=== PATIENT | male | born 1990 | race African-American/Black ===

== ENCOUNTER 2022-10-21 08:00 | Observation (INO) ==
[2022-10-21] MEDS ORDERED: ASPIRIN 325 MG TABLET PO STA (08:16)
[2022-10-21] MEDS ORDERED: NITROGLYCERIN SL 0.4 MG TABLET SL STA (08:21)
[2022-10-21 08:36] LABS: Basophils # 0.1 10*3/uL (0.0-0.2); Basophils % 0.4 % (0.0-0.8); Eosinophils % 0.1 % (0.00-10.9); Hematocrit 47.3 VOL% (42.0-52.0); Hemoglobin 16.1 GM/DL (14.0-18.0); Immature Granulocytes Absolute 0.67 #; Lymphocytes # 2.5 10*3/uL (1.4-4.0); Lymphocytes % 7.4 % (21.2-54.2); Mean Corpuscular Volume 89.1 FL (87-102); Mean Platelet Volume 9.3 FL (9.6-12.0); Monocytes # 3.5 10*3/uL (0.11-0.8); Monocytes % 10.4 % (1.7-12.7); Neutrophils % 79.7 % (38.7-73.9); Platelet Count 258 T/CUMM (130-400); Red Blood Count 5.31 MC/CUMM (3.8-5.5); Red Cell Distribution Width 13.4 % (9.3-17.3)
[2022-10-21 08:57] LABS: Albumin 3.9 G/DL (3.4-5.0); Bilirubin,Total 1.8 MG/DL (0.20-1.00); Calcium 9.2 MG/DL (8.5-10.1); Lymphocytes 4 % (20-55); Platelet Estimate Adequate; Potassium 3.8 MMOL/L (3.5-5.1); Total Cells Counted 100; Total Protein 8.2 G/DL (6.4-8.2)
[2022-10-21 09:46] LABS: Glucose,Urine (UA) Negative (Negative); Ketones,Urine Trace mg/dL (Negative); Mucus,Urine Occasional /LPF (Occasional); Nitrite,Urine Negative (Negative); Protein,Urine 30 mg/dL (Negative); RBC,Urine 2 /HPF (0-4); Squamous Epithelial Cell,Urine Occasional /HPF (0-10); Urine Appearance Clear (Clear); Urine Color Dark Yellow (Yellow); Urine pH 7.5 (4.5-8.0)
[2022-10-21 09:47] LABS: Bilirubin,Urine Small mg/dL (Negative); Blood, Urine Negative (Negative)
[2022-10-21] MEDS ORDERED: SODIUM CHLORIDE 0.9% 1,000 ML IV STA (09:52)
[2022-10-21 10:06] LABS: Barbiturates Screen,Urine Negative (Negative); Benzodiazepines Screen,Urine Negative (Negative); Cannabinoid Screen,Urine Negative (Negative); Opiate Screen,Urine Negative (Negative); Phencyclidine Screen,Urine Negative (Negative)
[2022-10-21] MEDS ORDERED: ACETAMINOPHEN 325 MG TABLET PO PRN (10:49)
[2022-10-21] MEDS ORDERED: MORPHINE 2 MG/1 ML SYRINGE IV PRN (10:49)
[2022-10-21] MEDS ORDERED: ONDANSETRON 4 MG/2 ML VIAL IV PRN (10:49)
[2022-10-21] MEDS ORDERED: chlorproMAZINE 25 MG/1 ML AMP IM ONE (11:26)
[2022-10-21] MEDS ORDERED: PANTOPRAZOLE 40 MG TABLET PO ONE (11:43)
[2022-10-21] MEDS: ENOXAPARIN 40 MG/0.4 ML SYRINGE SUBCUT SCH (11:45)
[2022-10-21] MEDS: PANTOPRAZOLE 40 MG TABLET PO SCH (11:45)
[2022-10-21] MEDS ORDERED: KETOROLAC 30 MG/1 ML VIAL IV ONE (15:27)
[2022-10-21] MEDS: SODIUM CHLORIDE 0.9% 1,000 ML IV SCH (17:40)
[2022-10-22] MEDS: SODIUM CHLORIDE 0.9% 1,000 ML IV SCH ×2 (02:10→09:52)
[2022-10-22 05:34] LABS: Basophils # 0.2 10*3/uL (0.0-0.2); Basophils % 0.6 % (0.0-0.8); Eosinophils # 0.2 10*3/uL (0.0-0.87); Eosinophils % 0.8 % (0.00-10.9); Hemoglobin 14.7 GM/DL (14.0-18.0); Immature Granulocytes % 2.1 %; Immature Granulocytes Absolute 0.54 #; Lymphocytes # 2.6 10*3/uL (1.4-4.0); Lymphocytes % 10.4 % (21.2-54.2); Mean Corpuscular Volume 88.8 FL (87-102); Mean Platelet Volume 9.3 FL (9.6-12.0); Monocytes # 2.5 10*3/uL (0.11-0.8); Monocytes % 9.7 % (1.7-12.7); Neutrophils % 76.4 % (38.7-73.9); Platelet Count 265 T/CUMM (130-400); Red Blood Count 4.73 MC/CUMM (3.8-5.5); Red Cell Distribution Width 13.2 % (9.3-17.3); White Blood Count 25.3 T/CUMM (4-12)
[2022-10-22 06:01] LABS: Bilirubin,Total 0.7 MG/DL (0.20-1.00); Calcium 8.2 MG/DL (8.5-10.1); Osmolality,Calculated 280.4 MOS/KG (273-304); Potassium 3.7 MMOL/L (3.5-5.1); Risk Ratio 4.35; Total Protein 7.3 G/DL (6.4-8.2); VLDL Cholesterol 17.8 MG/DL
[2022-10-22] MEDS ORDERED: diphenhydrAMINE CAP 50 MG CAPSULE PO ONE (06:15)
[2022-10-22] MEDS ORDERED: DIAZEPAM 5 MG TABLET PO ONE (06:15)
[2022-10-22 06:23] LABS: Eosinophils 1 % (0-10); Lymphocytes 12 % (20-55); Platelet Estimate Adequate; Total Cells Counted 100
[2022-10-22] MEDS ORDERED: HEPARIN/NACL 0.9% 2 UNITS/ML 2,000 UNIT/1,000 ML BAG IV ONE (06:37)
[2022-10-22] MEDS ORDERED: NITROGLYCERIN DRIP 50 MG/250 ML BOTTLE IV ONE (06:37)
[2022-10-22] MEDS ORDERED: VERAPAMIL 5 MG/2 ML VIAL ONE (06:37)
[2022-10-22] MEDS ORDERED: MIDAZOLAM 2 MG/2 ML VIAL ONE (07:15)
[2022-10-22] MEDS ORDERED: HYDROmorphone 1 MG/1 ML SYRINGE ONE (07:15)
[2022-10-22] MEDS ORDERED: diphenhydrAMINE 50 MG/1 ML VIAL ONE (07:17)
[2022-10-22] MEDS ORDERED: ENOXAPARIN 30 MG/0.3 ML SYRINGE ONE (07:33)
[2022-10-22] MEDS ORDERED: ASPIRIN CHEW 81 MG TABLET PO SCH (09:00)
[2022-10-22] MEDS: PANTOPRAZOLE 40 MG TABLET PO SCH (09:39)
[2022-10-22] MEDS: ENOXAPARIN 40 MG/0.4 ML SYRINGE SUBCUT SCH (10:45)
[2022-10-22 11:30] VITALS: BP 127/68
== END 2022-10-22 12:15 | disposition home or self-care (01) ==
LOC: N.ED 08:00 → N.EDINP 08:00 → N.2W 13:32
PROVIDERS: ADMIT Internal Medicine; ATTEND Internal Medicine
PROC: CLCCHCL (ICD-10-PCS; 2022-10-22 07:15)